=== PATIENT | female | born 1975 ===

== ENCOUNTER 2016-10-19 13:06 | Day surgery (SDC) | payer MEDICAID ==
[~2016-10-19] VITALS: Ht 162.6 cm; Wt 95.2 kg
[~2016-10-19 13:06] MED LIST: ACET325T51 PO; IBUP-1827 PO; KEN25CR EXT; OMEP20CA11 PO; VENL75TA3 PO; fentaNYL-PF 50 mCg/mL 2 mL Inj IVPUSH PRN
[2016-10-19 13:26] VITALS: BP 128/77; PULSE 80; RESP 16; O2SAT 97
[2016-10-19] MEDS: 0.9% Sodium Chloride 1,000 ML IV PRN ×3 (13:44→14:33)
[2016-10-19 14:41] VITALS: BP 125/76; PULSE 89; RESP 16; O2SAT 95
[2016-10-19 15:04] VITALS: BP 105/55; PULSE 88; RESP 16; O2SAT 99
--- NOTE | 2016-10-19 19:28 | ENDO ---
[address] [address] ENDOSCOPY PROCEDURE PATIENT: GABY ELENA : 1975 MR#: [id number] ADMIT: 10/19/2016 JOB ID: [id number] DATE: 10/19/2016 PREPROCEDURE DIAGNOSIS: Abdominal pain, gastroesophageal reflux disease. POSTPROCEDURE DIAGNOSIS: Abdominal pain, gastroesophageal reflux disease. PROCEDURE PERFORMED: Upper endoscopy with biopsies. SURGEON: Janelle Mahmood MD INSTRUMENT: Olympus GIF H 180 J. MEDICATIONS: Versed 5 mg, fentanyl 100 mcg. FINDINGS: 1. Two tiny ulcers in the fundus, one was biopsied. 2. Distal esophagitis LA grade A. One biopsy was performed. 3. Mild hypertrophy of pyloric mucosa, biopsied. 4. Hiatal hernia with the squamocolumnar junction at 34 cm and diaphragmatic hiatus at 39 cm. DESCRIPTION OF PROCEDURE: The patient was brought to the endoscopy suite and placed in the left lateral decubitus position. A procedural pause was performed. A bite block was placed. Moderate anesthesia was induced. The endoscope was advanced through the esophagus, stomach, and into the third portion of the duodenum. The entire examined duodenum was normal. There was mild hypertrophy of mucosa at the pylorus without sign of mass, stricture, and was biopsied. The remainder of the gastric mucosa appeared normal on antegrade and retroflexed views, with the exception of two tiny ulcers in the fundus, one was biopsied. The endoscope was withdrawn and the diaphragmatic hiatus was seen at 39 cm, with the squamocolumnar junction at 34 cm, consistent with hiatal hernia. There was mild esophagitis LA grade A of the distal esophagus at 34 cm. A biopsy was performed. Narrow band imaging was used for visualization. The endoscope was withdrawn. The remainder of the esophagus appeared normal. COMPLICATIONS: None. SPECIMENS: 1. Ulcer of the fundus. 2. Pylorus. 3. GE junction. ESTIMATED BLOOD LOSS: None.
--- NOTE | 2016-10-23 14:39 | PATH ---
SURGICAL PATHOLOGY Attending Physician:Janelle Mahmood MD CASE STATUS: Signed Out PATIENT NAME: GABY ELENA PID: [id number] : 1975 DATE COLLECTED:10/19/2016 00:00 SPECIMEN: 1: Gastric, Biopsy 2: Gastric, Biopsy 3: Esophagus, Biopsy CLINICAL HISTORY: 1). FUNDAL ULCER BIOPSIES 2). PYLORIC BIOPSIES 3). GE JUNCTION BIOPSIES FINAL DIAGNOSIS: 1.FUNDIC ULCER BIOPSIES: MODERATE CHRONIC GASTRITIS WITH FOCAL SUPERFICIAL ULCERATION, INVOLVING FUNDIC MUCOSA. Immunohistochemistry for Helicobacter pending, to be reported by addendum. Negative for intestinal metaplasia. Negative for dysplasia and malignancy. 2.PYLORIC BIOPSIES: DIFFUSE MILD CHRONIC GASTRITIS INVOLVING PYLORIC MUCOSA. Immunohistochemistry for Helicobacter pending, to be reported by addendum. Negative for intestinal metaplasia. Negative for dysplasia and malignancy. 3.GE JUNCTION BIOPSIES: SQUAMOUS MUCOSA AND GASTRIC CARDIA-TYPE MUCOSA NEGATIVE FOR SPECIALIZED METAPLASIA OF GRAY' S-TYPE ESOPHAGUS. REACTIVE SQUAMOUS EPITHELIAL CHANGES WITH ASSOCIATED INTRAEPITHELIAL EOSINOPHILS CONSISTENT WITH CHANGES OF CHRONIC REFLUX. Negative for dysplasia and malignancy. ICD10 K29.70 GROSS DESCRIPTION: The specimens are received in formalin, labeled with the patient's name, and sublabeled as the following: (1) fundal ulcer bxs; (2) pyloric bxs; (3) GEJ bxs. (1) The specimen consists of a fragment of sy-white glistening rubbery semitranslucent tissue (0.3 x 0.2 x 0.1 cm). Section code: (1A) tissue. Specimen entirely submitted. (2) The specimen consists of a fragment of sy-white glistening rubbery semitranslucent tissue (0.6 x 0.3 x 0.1 cm). Section code: (2A) tissue. Specimen entirely submitted. (3) The specimen consists of multiple fragments of lutz-white glistening translucent tissue (0.5 x 0.2 x 0.1 cm in aggregate). Section code: (3A) tissue. Specimen entirely submitted. 10/22/16 JM MICRO DESCRIPTION: See diagnosis. ICD-9 CODES: CPT CODES: 1: 87590 2: 57530 3: 05317, 21781, 58406 Electronically Signed Out Jaswinder Lowery MD [facility] [address], [place] [address] Technical component performed at [facility], [address], [place], [address]
== END 2016-10-19 23:59 | disposition home or self-care (01) ==
LOC: END 13:06
PROVIDERS: ATTEND Surgery
DX: K29.50 Unspecified chronic gastritis without bleeding (principal); K25.9 Gastric ulcer, unspecified as acute or chronic, without hemorrhage or perforation; K20.8 Other esophagitis; K44.9 Diaphragmatic hernia without obstruction or gangrene; K21.9 Gastro-esophageal reflux disease without esophagitis; R10.13 Epigastric pain; F41.8 Other specified anxiety disorders; G51.0 Bell's palsy; Z90.710 Acquired absence of both cervix and uterus; Z85.41 Personal history of malignant neoplasm of cervix uteri; Z85.828 Personal history of other malignant neoplasm of skin
CPT/HCPCS: 43239; 88305; 88341; 88342; 99152; J2250; J3010; J7030

== ENCOUNTER → 2017-01-03 | Day surgery (SDC) | payer MEDICAID ==
[~2017-01-03] VITALS: Ht 165.1 cm; Wt 95.2 kg
[~2017-01-03] MED LIST changes: +0.9% Sodium Chloride 1,000 ML IV ONE
[2017-01-03 11:39] VITALS: BP 122/81; PULSE 72; RESP 16; O2SAT 94
[2017-01-03 12:36] VITALS: BP 121/76; PULSE 88; RESP 16; O2SAT 94
[2017-01-03 12:47] VITALS: BP 108/79; PULSE 76; O2SAT 94
[2017-01-03 12:57] VITALS: BP 107/85; PULSE 82; RESP 16; O2SAT 95
--- NOTE | 2017-01-03 13:13 | ENDO ---
[address] [address] ENDOSCOPY PROCEDURE PATIENT: GABY ELENA : 1975 MR#: [id number] ADMIT: 01/03/2017 JOB ID: [id number] DATE OF PROCEDURE: 01/03/2017 PREPROCEDURAL DIAGNOSES: 1. Ulcers of the gastric fundus. 2. Esophagitis. 3. Gastroesophageal reflux disease. POSTPROCEDURAL DIAGNOSES: 1. Ulcers of the gastric fundus. 2. Esophagitis. 3. Gastroesophageal reflux disease. PROCEDURE PERFORMED: Upper endoscopy with biopsies. SURGEON: Janelle Mahmood MD. HISTORY OF PRESENT ILLNESS: This is a 41-year-old woman with severe reflux. She underwent upper endoscopy six weeks ago which revealed ulcers of the gastric fundus and esophagitis. She was started on a PPI and returned for followup EGD to assess efficacy of PPI therapy. FINDINGS: 1. LA grade A esophagitis, improved compared to previous endoscopy. 2. Ulcers of the gastric fundus were completely healed. INSTRUMENT: Olympus GIF-H180J. ANESTHESIA: 1. Versed 5 mg. 2. Fentanyl 100 mcg. DESCRIPTION OF PROCEDURE: The patient was brought to the procedure suite and placed in left lower decubitus position. A bite block was placed, and moderate anesthesia was induced after a preprocedural pause. The endoscope was advanced into the esophagus, stomach, and third portion of the duodenum. The duodenum was normal. The entire stomach was visualized and retroflexed examination revealed absence of previous ulcers of the fundus. There were no other masses, polyps, or worrisome mucosal abnormalities. The GE junction revealed squamocolumnar junction at 34 cm and diaphragmatic hiatus at 38 cm, consistent with known hiatal hernia. Hill grade 2 flap valve on retroflex view. LA grade A esophagitis was visualized, although, it appeared improved compared to photographs from the previous endoscopy. Biopsies were taken of the GE junction. A random biopsy was taken of the stomach to rule out H. pylori. The endoscope was withdrawn. The patient tolerated the procedure well. COMPLICATIONS: None. SPECIMENS: 1. Gastroesophageal junction. 2. Gastric biopsy, rule out H. pylori. DISPOSITION: I have recommended that she increase her PPI to b.i.d., and have placed a second referral for evaluation by a bariatric surgeon.
--- NOTE | 2017-01-10 16:22 | PATH ---
SURGICAL PATHOLOGY Attending Physician:Janelle Mahmood MD CASE STATUS: Signed Out PATIENT NAME: GABY ELENA PID: [id number] : 1975 DATE COLLECTED:01/03/2017 00:00 SPECIMEN: 1: Esophagus, Biopsy 2: Gastric, Biopsy CLINICAL HISTORY: 1) GE JUNCTION BIOPSY 2). GASTRIC BIOPSY, RULE OUT H.PYLORI FINAL DIAGNOSIS: 1. Gastroesophageal Junction, Biopsy: Squamocolumnar junctional mucosa with chronic inflammation. Negative for intestinal metaplasia, dysplasia or malignancy. 2. Stomach, Biopsy: Gastric body mucosa with chronic gastritis. Helicobacter organisms not identified. Negative for intestinal metaplasia, dysplasia or malignancy. ICD10: K21.0 GROSS DESCRIPTION: The specimen is received in two formalin filled containers labeled with the patient's name. 1). The specimen is labeled " GEJ " and consists of 3 portions of tissue which aggregate to zero 3 x 0.3 x 0.2 CM. The specimen is entirely submitted in cassette 1A. 2). The specimen is labeled "gastric" and consists of 2 portions of tissue which aggregate to 0.2 x 0 2 x 0.2 CM. The specimen is entirely submitted in cassette 2A. 01/04/2017DC ICD-9 CODES: CPT CODES: 1: 57845 2: 91677 Electronically Signed Out Kraig Pitt MD, Ph.D. [facility] [address], [place] [address] Technical component performed at [facility], [facility] [address], [place], [address]
== END | disposition home or self-care (01) ==
LOC: END 00:20
PROVIDERS: ATTEND Surgery
DX: K20.8 Other esophagitis (principal); K29.50 Unspecified chronic gastritis without bleeding; K21.9 Gastro-esophageal reflux disease without esophagitis; E66.09 Other obesity due to excess calories; Z68.36 Body mass index [BMI] 36.0-36.9, adult; Z85.41 Personal history of malignant neoplasm of cervix uteri; Z87.11 Personal history of peptic ulcer disease
CPT/HCPCS: 43239; 88305; G0500; J2250; J3010; J7030